=== PATIENT | male | born 1965 | race Caucasian/White ===

== ENCOUNTER 2022-05-17 14:08 | Emergency (ER) | payer MEDICAID ==
[~2022-05-17] VITALS: Ht 167.6 cm; Wt 75.0 kg
[2022-05-17 14:28] VITALS: BP 145/95
[2022-05-17] MEDS ORDERED: LIDOcaine 1% 30ml preserv. free vial IJ STA (14:57)
[2022-05-17] MEDS ORDERED: cephalexin 500mg capsule PO ONE (16:00)
[2022-05-17] MEDS ORDERED: CEPH500C2 PO (16:03)
== END 2022-05-17 16:22 | disposition home or self-care (01) ==
LOC: ER 14:10
DX: S61.215A Laceration without foreign body of left ring finger without damage to nail, initial encounter (principal); W45.8XXA Other foreign body or object entering through skin, initial encounter; Y93.89 Activity, other specified; Y92.89 Other specified places as the place of occurrence of the external cause; Y99.8 Other external cause status
CPT/HCPCS: 12001; 73140; 99283; J7030